=== PATIENT | female | born 2005 | race Caucasian/White ===

== ENCOUNTER 2023-12-09 21:28 | Emergency (ER) | payer SELFPAY ==
[~2023-12-09] VITALS: Ht 162.6 cm; Wt 71.0 kg
[2023-12-09 21:33] VITALS: O2SAT 100
[2023-12-09] MEDS: ONDANSETRON HCL 4MG/2ML INJ IV ONE (21:45)
[2023-12-09] MEDS: SODIUM CHLORIDE 0.9% 100 ML IV ONE (21:45)
[2023-12-09 22:41] LABS: HEMATOCRIT 44.9 % (36.0-48.0); HEMOGLOBIN 14.9 g/dL (12.0-16.0); MEAN CORPUSCULAR HEMOGLOBIN 30.9 pg (28.0-32.0); MEAN CORPUSCULAR HGB CONC 33.3 g/dL (31.0-37.0); MEAN CORPUSCULAR VOLUME 92.8 fL (81.0-99.0); PLATELET 224 x1000/uL (130-400); RED BLOOD CELL COUNT 4.84 mill/uL (4.2-5.4); RED CELL DISTRIBUTION WIDTH 13.8 % (11.6-14.6); WHITE BLOOD COUNT 10.8 x1000/uL (4.5-11.0)
[2023-12-09 22:48] LABS: CHLORIDE 110 mEq/L (98-107); SODIUM 143 mEq/L (136-145)
[2023-12-09 22:49] LABS: CALCIUM 9.5 mg/dL (8.7-10.4); CARBON DIOXIDE 24 mEq/L (21-32)
[2023-12-09 22:54] LABS: GLUCOSE 91 mg/dL (70-105); UREA NITROGEN BLOOD 10 mg/dL (9-23)
[2023-12-09 23:01] LABS: HCG SCREEN NEGATIVE
[2023-12-09 23:04] LABS: ETHANOL BLOOD 286 mg/dL (<10)
[2023-12-10 00:23] VITALS: BP 99/63; PULSE 88; RESP 18; TEMP 36.66960; O2SAT 100
== END 2023-12-10 00:45 | disposition home or self-care (01) ==
LOC: ER 21:28
DX: F10.129 Alcohol abuse with intoxication, unspecified (principal); Y90.8 Blood alcohol level of 240 mg/100 ml or more
CPT/HCPCS: 80048; 80320; 84703; 85027; 36415; 96361; 96374; 99283; J2405; J7050; Z7610; G0480